=== PATIENT | male | born 1950 | race Caucasian/White ===

== ENCOUNTER 2017-07-22 05:18 | Day surgery (SDC) | payer MEDICARE, OTHER ==
[2017-07-21 15:08] LABS: HEMATOCRIT 44.4 % (42.0-54.0); HEMOGLOBIN 14.7 g/dL (13.5-17.5); MCH 30.3 pg (26.0-34.0); MCHC 33.1 g/dL (31.0-37.0); MCV 91.5 fL (80.0-100.0); MEAN PLATELET VOLUME 10.6 fL (7.4-10.4); RBC 4.85 10x6/uL (4.20-6.10); WBC 7.5 10x3/uL (4.8-10.8)
[~2017-07-22] VITALS: Ht 177.8 cm; Wt 93.9 kg
--- NOTE | ~2017-07-22 | OP ---
PATIENT NAME: DONNY BLANCO MEDICAL RECORD: [id number] :52 LOCATION:[facility] ADMISSION DATE: SURGEON: DONNY MENDES MD DATE OF OPERATION: 07/22/2017 SURGEON: Donny Mendes MD SHIPPER: General anesthesia by Zion Knapp CRNA PREOPERATIVE DIAGNOSIS: Obstructive benign prostatic hyperplasia. POSTOPERATIVE DIAGNOSES: Obstructive benign prostatic hyperplasia and also bulbar urethral stricture. PROCEDURES: 1. Cystoscopy, direct vision internal urethrotomy of urethral stricture. 2. GreenLight laser transurethral resection of the prostate, power of 80 chaparro. Total energy 54,739 kilojoules, laser on time 11 minutes 56 seconds. BLOOD LOSS: None. COMPLICATIONS: None. FINDINGS: Bulbar urethral stricture. Trilobar hyperplasia of the prostate. Penile urethra was so long that I am unable to get the scope into the bladder. CLINICAL HISTORY: This is a 67-year-old male, patient of Dr. Demarco, who was referred to me with obstructive BPH symptoms. He has had these symptoms for quite some number of years. He is on finasteride and terazosin which he was prescribed by Dr. Flanagan. The medical treatments are no longer working to control the symptoms. Dr. Flanagan had recommended a TURP to the patient. This was 2-3 years ago. He and Dr. Flanagan had a disagreement and he no longer sees Dr. Flanagan. He has been on these medications for BPH for the past 10 years. In terms of his voiding symptoms, he has nocturia times 3 and in the daytime, he had to void every hour on the hour. He has urge incontinence. When he does try to void, he has hesitancy in getting started and a very slow stream. It takes him at least 5 minutes to fully empty his bladder. He comes today to have his prostate resected. On rectal examination, he has an enlarged prostate about 50% to 60 grams with the left lobe being more prominent than the right. He has history of coronary artery disease. He has had 2 coronary artery stents. Carbon Sequestration Plant Manager is Dr. Nolasco. We obtained cardiac clearance from Dr. Nolasco for the surgery today. The patient is allergic to QUINAPRIL. He was given amoxicillin, sulbactam IV 3 grams senior consumer insights consultant to the OR. DESCRIPTION OF PROCEDURE: The patient was given induction of general anesthesia. He was then placed in the dorsal lithotomy position and prepped and draped. The penile urethral meatus was rather narrow, so we used male sounds to dilate the urethra to 26-Danish. Looking in with the laser resectoscope and the visual obturator, we noted that at the bulbar urethra, he had a tight urethral stricture which would not allow the scope to pass. A Sensor wire was passed through the urethral lumen into the bladder. The laser resectoscope was then removed, leaving the guidewire in place. Going beside the guidewire with an optic urethrotome and a 12-degree lens, we were able to see the stricture zone and sized at 12 o'clock using the cold knife. Once the scope had cut through the stricture zone, we were able to enter into the prostatic urethra. The OPERATIVE REPORT [id number] FRANCISDONNY was identified. He has bilateral lateral lobe obstruction from hyperplasia there. He also has an elevated and tight bladder neck. The patient's penis is very long and the scope was unable to get into the bladder. The optic urethrotome was removed and the laser resectoscope was placed back in. Again, because of the penile length, I was unable to get the scope into the bladder. It was with only with a great deal of difficulty that I was able to see the bladder neck. We then introduced the laser fiber. Our resection was from the level of the bladder neck to just proximal to the verumontanum. Using 80 chaparro of power, I initially took down the bladder neck. We encountered some bleeding from the inferior vesicle arteries at the left bladder neck at about the 4 o'clock position. With ongoing laser resection, the bleeding was completely stopped. I then took down the left lateral lobe. The left lateral lobe seems to be the larger lobe. This was taken down to the pseudocapsule of the prostate. Then, the right lateral lobe was taken down. We always made sure that our resection stopped to the level of the verumontanum. At the end of the procedure, no bleeding was seen either arterial or venous. There was a wide open channel from the level of the verumontanum all the way to the bladder neck. The laser resectoscope was then removed. A 20-Danish 3-way Ferguson catheter was inserted into the bladder. The balloon was inflated with 30 cc of sterile water. A catheter plug was placed into the inflow port. The catheter was placed to bag drainage. The patient will be going home with the Ferguson catheter in place. Normally, I would remove the Ferguson catheter the next day, but because of the urethral stricture incision, I will leave the catheter in for a week to let it heal. I will see him back next week to remove the Ferguson catheter in the office. TRANSINT:[id number] Voice Confirmation ID: [id number] DOCUMENT ID: [id number] DONNY MENDES MD at 0752 CC: [id number] DICTATION DATE: 07/22/17901 SENIOR BIOSTATISTICIAN/GROUP LEADER: 07/22/17 1138 [facility] 07/22/17 [facility] [address] [place] [address]
[~2017-07-22 05:18] MED LIST: ASPIRIN EC81 M1 PO; HYTRIN10 MG PO; ISOSORBIDE MONO30 M1 PO; LIPITOR20 MG PO; NORVASC2.5 MG PO; PACERONE100 MG PO; PEPCID20 MG PO; PROTONIX40 MG PO
[2017-07-22 05:44] VITALS: BP 113/64; Ht 177.8 cm; Wt 93.9 kg
== END 2017-07-22 11:30 | disposition home or self-care (01) ==
LOC: D.OPS 05:18 → D.PAN 07:30 → D.OPS 07:30
PROVIDERS: Anesthesiology
DX: N40.0 Benign prostatic hyperplasia without lower urinary tract symptoms (principal); N35.9 Urethral stricture, unspecified; F17.200 Nicotine dependence, unspecified, uncomplicated; I25.10 Atherosclerotic heart disease of native coronary artery without angina pectoris; I10 Essential (primary) hypertension; K21.9 Gastro-esophageal reflux disease without esophagitis; E66.9 Obesity, unspecified; Z68.29 Body mass index [BMI] 29.0-29.9, adult

== ENCOUNTER → 2017-08-12 16:02 | Outpatient (CLI) | payer MEDICARE, OTHER ==
[2017-07-22 05:44] VITALS: BMI 29.7
== END | disposition home or self-care (01) ==
LOC: D.LABREF 16:02
DX: N39.0 Urinary tract infection, site not specified (principal)

== ENCOUNTER → 2017-08-24 17:49 | Outpatient (CLI) | payer MEDICARE, OTHER ==
[2017-07-22 05:44] VITALS: BMI 29.7
== END | disposition home or self-care (01) ==
LOC: D.LABREF 17:49
DX: N39.0 Urinary tract infection, site not specified (principal)